=== PATIENT | male | born 1985 | race Caucasian/White ===

== ENCOUNTER 2017-11-14 14:49 | Emergency (ER) | payer MEDICAID, OTHER ==
[~2017-11-14] VITALS: Ht 175.3 cm; Wt 68.2 kg
[2017-11-14] MEDS ORDERED: HYDROcodone/acetaminophen 5mg/325mg tablet PO ONE (14:55)
[2017-11-14] MEDS ORDERED: TETanus/Pertussis (Acell)/Diphther VAC/PF (Tdap-Adult) 0.5ml syringe IM ONE (16:15)
[2017-11-14 16:28] VITALS: BP 128/69
== END 2017-11-14 16:31 | disposition home or self-care (01) ==
LOC: ER 14:50
DX: S06.0X9A Concussion with loss of consciousness of unspecified duration, initial encounter (principal); S30.810A Abrasion of lower back and pelvis, initial encounter; F15.90 Other stimulant use, unspecified, uncomplicated; Z56.0 Unemployment, unspecified; X58.XXXA Exposure to other specified factors, initial encounter; Y93.89 Activity, other specified; Y92.89 Other specified places as the place of occurrence of the external cause; Y99.8 Other external cause status
CPT/HCPCS: 70450; 71045; 72100; 73502; 73560; 90471; 90715; 99284

== ENCOUNTER 2017-12-06 10:11 | Emergency (ER) | payer MEDICAID, OTHER ==
[~2017-12-06] VITALS: Ht 175.3 cm; Wt 68.2 kg
[2017-12-06 10:25] VITALS: BP 132/87
[2017-12-06] MEDS ORDERED: BUPIVAcaine/PF 2.5 mg/ml (0.25%) 30ml vial IJ ONE (11:15)
[2017-12-06] MEDS ORDERED: TETanus/Pertussis (Acell)/Diphther VAC/PF (Tdap-Adult) 0.5ml syringe IM ONE (11:15)
[2017-12-06] MEDS ORDERED: BUPIVAcaine 2.5mg/ml inj 50ml vial (contains preservative) IJ ONE (11:45)
[2017-12-06] MEDS ORDERED: CEPH500C5 PO (12:45)
[2017-12-06] MEDS ORDERED: SULF1TAB49 PO (12:45)
== END 2017-12-06 13:01 | disposition home or self-care (01) ==
LOC: ER 10:12
DX: L02.413 Cutaneous abscess of right upper limb (principal); F15.90 Other stimulant use, unspecified, uncomplicated; Z56.0 Unemployment, unspecified; Z91.040 Latex allergy status; Z79.899 Other long term (current) drug therapy
CPT/HCPCS: 10060; 99283; A6449; J3490

== ENCOUNTER 2018-02-09 14:20 | Emergency (ER) | payer MEDICAID, OTHER ==
[~2018-02-09] VITALS: Ht 175.3 cm; Wt 67.0 kg
[~2018-02-09 14:20] MED LIST: CEPH500C5 PO
[2018-02-09 14:55] VITALS: BP 13/73
[2018-02-09] MEDS ORDERED: CLIN150C2 PO (14:55)
== END 2018-02-09 15:08 | disposition home or self-care (01) ==
LOC: ER 14:20
DX: S02.5XXA Fracture of tooth (traumatic), initial encounter for closed fracture (principal); S60.412A Abrasion of right middle finger, initial encounter; K04.7 Periapical abscess without sinus; K12.2 Cellulitis and abscess of mouth; L03.011 Cellulitis of right finger; F15.90 Other stimulant use, unspecified, uncomplicated; Z91.040 Latex allergy status; Z56.0 Unemployment, unspecified; X58.XXXA Exposure to other specified factors, initial encounter; Y93.89 Activity, other specified; Y92.89 Other specified places as the place of occurrence of the external cause; Y99.8 Other external cause status
CPT/HCPCS: 99283

== ENCOUNTER → 2019-08-28 | Emergency (ER) | payer MEDICAID ==
[~2019-08-28] VITALS: Ht 175.3 cm; Wt 72.0 kg
[2019-08-28 20:54] VITALS: BP 127/88
== END | disposition left against medical advice (07) ==
LOC: ER 20:47
DX: R51 Headache (principal); M54.2 Cervicalgia; Z53.21 Procedure and treatment not carried out due to patient leaving prior to being seen by health care provider

== ENCOUNTER 2021-06-27 17:05 | Emergency (ER) | payer MEDICAID, OTHER ==
[~2021-06-27] VITALS: Ht 175.3 cm; Wt 68.2 kg
[2021-06-27 17:06] VITALS: BP 112/83
--- NOTE | 2021-06-27 18:01 | NUR ---
D/C'd by provider. Escorted out of the department by CHF officer.
== END 2021-06-27 18:04 ==
LOC: ER 17:05
DX: Z04.1 Encounter for examination and observation following transport accident (principal); F15.90 Other stimulant use, unspecified, uncomplicated; Z56.0 Unemployment, unspecified; Z72.89 Other problems related to lifestyle; Z91.040 Latex allergy status
CPT/HCPCS: 99283

== ENCOUNTER 2021-07-16 12:21 | Emergency (ER) | payer MEDICAID ==
[~2021-07-16] VITALS: Ht 175.3 cm; Wt 70.6 kg
[2021-07-16 12:29] VITALS: BP 131/82
[2021-07-16] MEDS ORDERED: SULF1TAB49 PO (13:59)
== END 2021-07-16 14:07 | disposition home or self-care (01) ==
LOC: ER 12:22
DX: L02.413 Cutaneous abscess of right upper limb (principal); L03.113 Cellulitis of right upper limb; F15.90 Other stimulant use, unspecified, uncomplicated; Z72.89 Other problems related to lifestyle; Z56.0 Unemployment, unspecified; Z79.899 Other long term (current) drug therapy; Z91.040 Latex allergy status
CPT/HCPCS: 10060; 99283

== ENCOUNTER 2022-10-16 12:57 | Emergency (ER) | payer MEDICAID ==
[~2022-10-16] VITALS: Ht 170.2 cm; Wt 65.4 kg
[2022-10-16 13:03] VITALS: BP 125/81
[2022-10-16] MEDS ORDERED: sulfamethoxazole/trimethoprim DS (800/160mg) tablet PO ONE (14:15)
[2022-10-16] MEDS ORDERED: LIDOcaine 1% W/epiNEPHrine 1:100,000 20ml vial SQ ONE (14:15)
[2022-10-16] MEDS ORDERED: cephalexin 250mg capsule PO ONE (14:15)
[2022-10-16] MEDS ORDERED: CEPH250T PO (15:07)
[2022-10-16] MEDS ORDERED: SULF1TAB45 PO (15:07)
== END 2022-10-16 15:17 | disposition home or self-care (01) ==
LOC: ER 12:58
DX: L02.415 Cutaneous abscess of right lower limb (principal); L02.413 Cutaneous abscess of right upper limb; F15.90 Other stimulant use, unspecified, uncomplicated; Z72.89 Other problems related to lifestyle; Z56.0 Unemployment, unspecified; Z91.040 Latex allergy status; Z79.2 Long term (current) use of antibiotics; Z79.899 Other long term (current) drug therapy
CPT/HCPCS: 10061; 73610; 99283; 99284

== ENCOUNTER → 2023-05-09 | Emergency (ER) | payer MEDICAID ==
[~2023-05-09] VITALS: Ht 175.3 cm; Wt 68.2 kg
[2023-05-09 17:44] VITALS: BP 132/86; PULSE 103; RESP 19; TEMP 98.2; O2SAT 98
== END ==
LOC: ER 17:27
DX: M25.512 Pain in left shoulder (principal); V87.7XXA Person injured in collision between other specified motor vehicles (traffic), initial encounter; Y93.89 Activity, other specified; Y92.89 Other specified places as the place of occurrence of the external cause; Y99.8 Other external cause status
CPT/HCPCS: 99283

== ENCOUNTER 2025-01-19 21:18 | Emergency (ER) | payer MEDICAID ==
[~2025-01-19] VITALS: Ht 172.7 cm; Wt 85.0 kg
[2025-01-19 21:26] VITALS: BP 126/87; PULSE 110; TEMP 98.2; O2SAT 98
[2025-01-19] MEDS ORDERED: BENZ-38 PO (22:30)
[2025-01-19] MEDS ORDERED: IBUP-1984 PO (22:30)
--- NOTE | 2025-01-19 22:31 | Physician Documentation ---
History of Present Illness ~ Chief Complaint: Cold, cough & congestion Stated Complaint: CP Time Seen by MD: 21:37 Primary Medical Doctor: N/A HPI 39-year-old male presents to the emergency department with URI symptoms for 1-2 days without recent travels or hospitalizations or known ill contacts. Mild complaints of rigors without gavin fever, mild complain of cough without prod uctive sputum. No noted nausea or vomiting or diarrhea. Declines COVID screening. Reports lives in his RV and does have employment. Declines recent or alcohol use, recreational drug or smoking. Patient is well-appearing. Medication Reconciliation Allergies: Coded Allergies: Latex, Natural Rubber (Unverified Allergy, Unknown, 05/09/23) Past Medical History Past Medical History: No Pertinent History Past Surgical History: no surgical history Alcohol Use: Occasionally Drug Use: methamphetamine Lives In: Home Occupation: unemployed Review of Systems Constitutional: Reports: chills, malaise; Denies: fever Eyes: Reports: no symptoms reported ENT: Reports: no symptoms reported Respiratory: Reports: cough; Denies: SOB with exertion, SOB at rest, wheezing Cardiovascular: Reports: no symptoms reported Gastrointestinal: Reports: no symptoms reported; Denies: nausea, vomiting, diarrhea Genitourinary: Denies: flank pain Neurological: Reports: no symptoms reported Musculoskeletal: Reports: no symptoms reported Integumentary: Reports: no symptoms reported; Denies: rash Allergic/Immunologic: Reports: no symptoms reported Psychiatric: Reports: no symptoms reported Physical Exam Vital Signs: Temperature: 98.2, Source: Temporal, Heart Rate: 110, Respiratory Rate: 18, BP: 126/87, Pulse Oximetry: 98, Weight: 85.000 Progress Results/Orders Results/Orders Orders - MARIELA ENG PAC Chest,Single View (01/19/25 22:10) Completed Orders - MARIELA ENG PAC Chest,Single View (01/19/25 22:10) Ketorolac Trometh 15mg/Ml Vial (Toradol (01/19/25 22:10) Benzonatate Capsule (Tessalon Perles Cap (01/19/25 22:10) Vital Signs 01/19/25 21:26 Temp 98.2 Pulse 110 Resp 18 B/P (MAP) 126/87 Pulse Ox 98 Medical Decision Making Differential Dx:Considerations: Include: Influenza, Pneumonia, Pnuemonitis, URI Differential Diagnosis 31-year-old male examination consistent with acute URI without obvious pneumonia on x-ray. Received Toradol and Tessalon Perles in the emergency department and provided outpatient prescription for ibuprofen and Tessalon Perles. Declines COVID screening. No clinical suspicion for serious bacterial illness such as meningitis, COVID, myocarditis endocarditis. Safely discharged in the emergency department with strict aftercare instructions. Discharged without hypoxia or shortness of breath. Departure Disposition: HOME / SELF CARE / HOMELESS Impression: Primary Impression: Viral syndrome Additional Impression: URI (upper respiratory infection) Qualified Codes: J06.9 - Acute upper respiratory infection, unspecified Condition: Stable Discharge Instructions: Upper Respiratory Infection, Adult Additional Instructions: Please continue with supportive measures to include prescriptions for Tessalon Perles for cough and ibuprofen for discomfort. Follow up with the primary care physician and return to the emergency department if symptoms worsen. Please consider in the future COVID screening if symptoms worsen. Your chest x-ray is reassuring for no obvious signs of pneumonia. Return for fever and/or increasing cough or sputum production with shortness of breath. Referrals: NO PRIMARY CARE PROVIDER (PCP) Prescriptions Ibuprofen* (Motrin*) 400 Mg Tablet 600 MG PO Q6H for 10 Days, #30 TAB Prov: MARIELA ENG PAC 01/19/25 Benzonatate* (Benzonatate*) 100 Mg Capsule 1-2 CAP PO Q6H PRN for cough, #30 CAP Prov: MARIELA ENG PAC 01/19/25 Education Educated: Patient Educated regarding: diagnosis, treatment Signature Scribe Signature: . Attestation: . MARIELA ENG PAC Jan 19, 2025 22:31
--- NOTE | 2025-01-19 22:34 | RADIOLOGY REPORT ---
EXAM: DI CHEST,SINGLE VIEW TECHNIQUE: Single frontal chest radiograph CLINICAL HISTORY: Cough COMPARISON: None FINDINGS/IMPRESSION: The lungs are clear. The cardiomediastinal silhouette is unremarkable. No pleural effusion or pneumothorax. No acute osseous abnormality.
[2025-01-19 22:52] VITALS: RESP 17
[2025-01-19] MEDS: ketorolac trometh 15mg/ml vial 15 MG/ML ML IM ONE (22:52)
[2025-01-19] MEDS: ketorolac trometh 30MG/ML vial 30 MG/ML VIAL IM ONE (22:52)
--- NOTE | 2025-01-20 06:00 | ELECTROCARDIOGRAPH REPORT ---
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 Reading MD: Measurements Intervals [place] Rate: 116 P: 78 [place]: 142 QRS: -24 QRSD: 83 T: 56 QT: 331 QTc: 460 Interpretive Statements Sinus tachycardia Probable left atrial enlargement Borderline left axis deviation Baseline wander in lead(s) V3 Please click the below link to view image of tracing.
== END 2025-01-19 22:57 | disposition home or self-care (01) ==
LOC: ER 21:18
DX: J06.9 Acute upper respiratory infection, unspecified (principal); F15.90 Other stimulant use, unspecified, uncomplicated; I49.8 Other specified cardiac arrhythmias; Z91.040 Latex allergy status; Z56.0 Unemployment, unspecified; Z76.0 Encounter for issue of repeat prescription
CPT/HCPCS: 71045; 93005; 96372; 99283; J1885

== ENCOUNTER 2025-04-25 19:12 | Emergency (ER) | payer MEDICAID ==
[~2025-04-25] VITALS: Ht 175.3 cm; Wt 68.0 kg
--- NOTE | 2025-04-25 20:06 | Physician Documentation ---
History of Present Illness ~ General Chief Complaint: Tooth Problem Stated Complaint: TOOTH PAIN Time Seen by MD: 19:49 Primary Medical Doctor: N/A Source: patient Mode of Arrival: POV History of Present Illness Initial Comments Patient is a 40-year-old male presenting to the ED for evaluation of worsening dental pain for past 2-3 years. Patient locates the pain to be on the lower right mandibular side, tooth number 30 and 31. He reports that he had a root canal done a few years ago but his insurance did not cover the cap so it got infected again. Patient was not able to tolerate the pain anymore so he used a pair of pliers and pull it out himself. The tooth came out but patient reports that the pain now radiates over to the next tooth, upwards to the right side of his face and down to the right side of his neck. The pain is intermittent but when the episodes occur the pain is sharp, tense and he experiences ringing in the right ear. He has also noticed some vision changes to his right eye when the episodes happen. Describes that his right eye gets blurry and he sees black dots. Patient has had relief with Tylenol and ibuprofen for the pain. Denies any chills, fevers, shortness of breath or chest pain. Patient consumes EtOH occasionally. Denies any illicit drugs. Medication Reconciliation Allergies: Coded Allergies: Latex, Natural Rubber (Unverified Allergy, Unknown, 05/09/23) Scheduled Amox Tr/Potassium Clavulanate 875/125 MG (Augmentin 875/125 MG), 1 TAB PO BID Past Medical History Past Medical History: No Pertinent History Past Surgical History: no surgical history Smoking Status: Unknown if ever smoked Alcohol Use: Occasionally Drug Use: methamphetamine Lives In: Home Occupation: unemployed Review of Systems All Other Systems at this time: Reviewed and Negative ROS Constitutional: Negative for fever and chills. HENT: Positive for dental pain and associated neck pain. Positive for ringing in ears. Negative for sore throat and rhinorrhea. Eyes: Negative for pain and redness. Respiratory: Negative for cough and SOB. Cardiovascular: Negative for chest pain and palpitations. Gastrointestinal: Negative for nausea and vomiting. . Genitourinary: Negative for dysuria and hematuria. Musculoskeletal: Negative for acute back pain and acute neck pain. Skin: Negative for rash and pruritus. Neurological: Negative for acute numbness or weakness. Physical Exam Physical Exam Vital Signs: Heart Rate: 116, Respiratory Rate: 20, BP: 140/90, Pulse Oximetry: 98, Weight: 68.000 Oxygen Flow Rate: 0 Physical Exam General: Awake no acute distress. Verbal Head: No trauma Eyes: Nl lids Nl conjunctiva. No eye discharge ENT: No sign of Huan's angina, no tongue or lip edema. Neck: Supple. No JVD. No visible mass Resp: Rate normal. No respiratory distress. No retractions. Normal air flow. No wheezes, rhonchi, or rales. Heart: Regular rhythm. No murmur. No rub Abdomen: Soft. Nontender. No guarding. No rebound Musc/skeletal: No calf or popliteal tenderness. No edema Skin: No rash. No petechiae. Not diaphoretic Neuro: Alert, oriented. Normal speech Procedures Nerve Block Anesthetic Used: bupivacaine Volume Anesthetic (ccs): .2 Tolerated Procedure Well?: yes, no complications Procedure Note Performed by Elizabeth, nurse practitioner, with my supervision. Patient's pain went from a 7-0. No complications, and patient tolerated procedure well. Progress Results/Orders Results/Orders Orders - ANT ANDERSON MD Ct Head (04/25/25 21:30) Ct Neck Soft Tissues (04/25/25 21:35) Completed Orders - ANT ANDERSON MD Bupivacaine 0.25% W/Epi Pf (Marcaine W/E (04/25/25 20:00) Amox Tr/Potassium Clavulanate (Augmentin (04/25/25 20:30) Ct Head (04/25/25 21:30) Ct Neck Soft Tissues (04/25/25 21:35) Iohexol 300mg/Ml 100ml Inj. (Omnipaque-3 (04/25/25 21:04) Vital Signs 04/25/25 04/25/25 04/25/25 19:33 20:29 23:49 Temp 98.9 Pulse 116 114 76 Resp 20 18 20 B/P (MAP) 140/90 149/92 (111) 142/76 Pulse Ox 98 98 97 O2 Flow Rate 0 0 EKG/XRAY/CT/US/VASC/MRI CT : Interpreted By: radiologist Impression COMPUTED TOMOGRAPHY OF THE HEAD WITHOUT AND WITH INTRAVENOUS CONTRAST REASON FOR EXAM: Infection. Right jaw swelling. COMPARISON: None TECHNIQUE: Spiral scans were acquired through the skull before and after the bolus intravenous administration of contrast material. Multiplanar reformations were generated. Automated exposure control was used. LABS: Current laboratory values provided were reviewed or point of care testing was performed to verify the patient meets current departmental guidelines for contrast media administration per protocol. CONTRAST ADMINISTERED: 50 mL Isovue 300 intravenously. MEDICATIONS: The patient's medication list was reviewed RADIATION DOSE: CTDI: 56 mGy DLP: 2124 mGy-cm FINDINGS: No suspicious hyperdensity is identified within the skull to suggest acute intracranial hemorrhage. There is no mass effect or midline shift. There is no hydrocephalus. The ambient cisterns are patent. The dural venous sinuses are patent. The intraorbital contents are unremarkable. The visualized mastoid air cells and paranasal sinuses are grossly clear. No abnormal intracranial enha ncement is identified. IMPRESSION: No acute intracranial abnormality. Electronically Signed by:RONAK TATE MD Date & Time: 04/25/252200 MEDICAL RECORDS NUMBER: [id number] PROCEDURE: CT CT NECK SOFT TISSUES W/ IV CONTRAST Date: 04/25/2025 09:23 PM HISTORY: r/o infection right mandible w spread w contrast TECHNIQUE: Multiple contiguous axial sections of neck were obtained after administration of contrast. Sagittal and coronal reconstructions were performed. COMPARISON: None RADIATION DOSE INFORMATION: Automated exposure control dose reduction techniques were used. Dose: CTDIvol: 12.8 mGy, DLP: 346.2 mGy.cm FINDINGS: Evaluation of the mid face is partially degraded by streak artifact from dental hardware. Multiple periapical lucencies are seen. There is no drainable collection. There is mild nonspecific subcutaneous stranding and swelling about the mandible. Scattered nonspecific cervical nodes may be reactive in etiology. The paranasal sinuses and mastoid air cells are clear. Visualized intracranial structures are unremarkable. The vessels are patent. The orbits are unremarkable. The lung apices are unremarkable. IMPRESSION: 1. Nonspecific stranding and swelling about the mandible without drainable collection. Infectious / inflammatory process cannot be excluded in the appropriate clinical setting. 2. Multiple periapical lucency suggest dental caries, correlate with dental examination is suggested. Electronically Signed by:TIFFANIE GALAN MD Date & Time: 04/25/252208 Medical Decision Making Additional information obtaine: N/A Findings MDM: Limited: (2 points from category 1 or one discussion with independent historian). Moderate: one of the following (3 points from category 1, or independent interpretations of tests performed by another physician/QHP: (ct,ecg,rad julia,rhythm strip,or comparing xray to prior), or discussion of tests or management with other professionals (not including [facility] ER doc/PA or family members.) High: (2 of 3 from : category 1 (3 points), independent interpretation of tests performed by another physician/QHP, and discussion of tests or management). Prior ER notes reviewed: Category 1: Number of Tests ordered or reviewed: [] Number of Independent Historians: [] Non [facility] ER notes reviewed: 1. 2. 3. Category 2: I independently interpreted the: [] Category 3: Discussion with other professionals: [] SOCIAL DETERMINANTS OF HEALTH Problems related to: ( )Challenges with access to Primary Care or Outpatient Speciality Care ( )Psychosocial circumstances such as mental health issues ( )Social environment: such as violence or substance abuse ( )Housing and economic circumstances: such as homelessness ( )Employment and unemployment: such as recently loss of employment ( )Occupational exposures or injuries: ( )Accessing ED outside of normal PCP hours ( )Language barrier: ( )Primary support group, including family circumstances: Prescription Management: Rx strength meds given in ED: [] New Prescriptions: [] ( )I have reviewed the patient's medications and I do not recommend any changes at this time. (Applies only if checked) Comorbid conditions include but are not limited to: [] Testing or interventions considered: [] Differential includes but is not limited to: [] Differential Diagnosis Differential diagnosis includes but is not limited to: Dental infection, Departure Time of Disposition: 23:34 Disposition: 01 HOME / SELF CARE / HOMELESS Impression: Primary Impression: Dental pain Additional Impression: Dental infection Condition: Stable Discharge Instructions: Dental Pain Additional Instructions: Please take your medications as prescribed. Please follow-up with a dentist regarding today's visit. Return to the ED for any new or worsening symptoms. Referrals: NO PRIMARY CARE PROVIDER (PCP) Prescriptions Amox Tr/Potassium Clavulanate 875/125 MG (Augmentin 875/125 MG) 875 Mg-125 Mg Tablet 1 TAB PO BID, #20 TAB Prov: ANT ANDERSON MD 04/25/25 Education Educated: Patient Educated regarding: diagnosis, treatment Signature Scribe Signature: Scribed for Ant Anderson MD by Landy Medina . 04/25/25 20:28 ANT ANDERSON MD Apr 25, 2025 20:06 LANDY BROWN Apr 25, 2025 20:33
[2025-04-25] MEDS: BUPIVAcaine 0.25% w/Epi /PF 30ml vial SQ ONE (20:13)
[2025-04-25] MEDS: amox tr/potassium clavulanate 875/125mg TAB PO ONE (20:30)
[2025-04-25] MEDS ORDERED: iohexol 300mg/ml 100ml inj. ONE (21:04)
--- NOTE | 2025-04-25 22:04 | RADIOLOGY REPORT ---
COMPUTED TOMOGRAPHY OF THE HEAD WITHOUT AND WITH INTRAVENOUS CONTRAST REASON FOR EXAM: Infection. Right jaw swelling. COMPARISON: None TECHNIQUE: Spiral scans were acquired through the skull before and after the bolus intravenous administration of contrast material. Multiplanar reformations were generated. Automated exposure control was used. LABS: Current laboratory values provided were reviewed or point of care testing was performed to verify the patient meets current departmental guidelines for contrast media administration per protocol. CONTRAST ADMINISTERED: 50 mL Isovue 300 intravenously. MEDICATIONS: The patient's medication list was reviewed RADIATION DOSE: CTDI: 56 mGy DLP: 2124 mGy-cm FINDINGS: No suspicious hyperdensity is identified within the skull to suggest acute intracranial hemorrhage. There is no mass effect or midline shift. There is no hydrocephalus. The ambient cisterns are patent. The dural venous sinuses are patent. The intraorbital contents are unremarkable. The visualized mastoid air cells and paranasal sinuses are grossly clear. No abnormal intracranial enhancement is identified. IMPRESSION: No acute intracranial abnormality.
--- NOTE | 2025-04-25 22:12 | RADIOLOGY REPORT ---
MEDICAL RECORDS NUMBER: [facility]-[id number] PROCEDURE: CT CT NECK SOFT TISSUES W/ IV CONTRAST Date: 04/25/2025 09:23 PM HISTORY: r/o infection right mandible w spread w contrast TECHNIQUE: Multiple contiguous axial sections of neck were obtained after administration of contrast. Sagittal and coronal reconstructions were performed. COMPARISON: None RADIATION DOSE INFORMATION: Automated exposure control dose reduction techniques were used. Dose: CTDIvol: 12.8 mGy, DLP: 346.2 mGy.cm FINDINGS: Evaluation of the mid face is partially degraded by streak artifact from dental hardware. Multiple periapical lucencies are seen. There is no drainable collection. There is mild nonspecific subcutaneous stranding and swelling about the mandible. Scattered nonspecific cervical nodes may be reactive in etiology. The paranasal sinuses and mastoid air cells are clear. Visualized intracranial structures are unremarkable. The vessels are patent. The orbits are unremarkable. The lung apices are unremarkable. IMPRESSION: 1. Nonspecific stranding and swelling about the mandible without drainable collection. Infectious / inflammatory process cannot be excluded in the appropriate clinical setting. 2. Multiple periapical lucency suggest dental caries, correlate with dental examination is suggested.
[2025-04-25] MEDS ORDERED: AMOX-580 PO (23:43)
[2025-04-25 23:49] VITALS: BP 142/76; PULSE 76; RESP 20; TEMP 98.9; O2SAT 97
== END 2025-04-25 23:51 | disposition home or self-care (01) ==
LOC: ER 19:13
DX: K04.7 Periapical abscess without sinus (principal); Z91.040 Latex allergy status; Z56.0 Unemployment, unspecified; Z72.89 Other problems related to lifestyle
CPT/HCPCS: 64450; 70470; 70491; 99285; Q9967